=== PATIENT | male | born 1960 | race African-American/Black ===

== ENCOUNTER 2023-05-03 16:13 | Emergency (ER) | payer MEDICAID ==
[~2023-05-03] VITALS: Ht 177.8 cm; Wt 84.3 kg
[2023-05-03] MEDS ORDERED: BRIM5DRO6 EACHEYE ×2 (18:12→18:21)
[2023-05-03] MEDS ORDERED: DORZ1DRO12 EACHEYE ×3 (18:12→18:21)
[2023-05-03 18:45] VITALS: BP 121/75; PULSE 60; RESP 16; TEMP 97.7; O2SAT 100
== END 2023-05-03 18:48 | disposition home or self-care (01) ==
LOC: ER 16:15
DX: H40.9 Unspecified glaucoma (principal); Z76.0 Encounter for issue of repeat prescription; Z79.899 Other long term (current) drug therapy
CPT/HCPCS: 99281

== ENCOUNTER 2023-07-05 16:43 | Emergency (ER) | payer MEDICAID ==
[~2023-07-05] VITALS: Ht 177.8 cm; Wt 96.8 kg
[~2023-07-05 16:43] MED LIST: BRIM5DRO6 EACHEYE; DORZ1DRO12 EACHEYE
[2023-07-05 17:14] VITALS: BP 139/70; PULSE 59; RESP 18; TEMP 98.8; O2SAT 100
== END 2023-07-05 18:40 | disposition home or self-care (01) ==
LOC: ER 16:44
DX: H40.9 Unspecified glaucoma (principal); H26.9 Unspecified cataract
CPT/HCPCS: 99281

== ENCOUNTER 2023-08-04 03:16 | Emergency (ER) | payer MEDICAID ==
[~2023-08-04] VITALS: Ht 180.3 cm; Wt 83.0 kg
[2023-08-04 03:18] VITALS: TEMP 98.1
[2023-08-04] MEDS ORDERED: DORZ10DR10 EACHEYE (07:06)
[2023-08-04 08:11] LABS: BASOPHILS % (AUTO) 0.4 % (0-1); EOSINOPHILS # (AUTO) 0.2 X10'3 (0-0.9); EOSINOPHILS % (AUTO) 2.8 % (0-6); HEMATOCRIT 41.5 % (42.0-52.0); HEMOGLOBIN 13.5 g/dl (14.0-17.9); LYMPHOCYTES # (AUTO) 1.5 X10'3 (1.1-4.8); LYMPHOCYTES % (AUTO) 24.2 % (21-51); MEAN CORPUSCULAR HEMOGLOBIN 26.9 PG (27.0-31.0); MEAN CORPUSCULAR HGB CONC 32.4 g/dL (33.0-36.5); MEAN CORPUSCULAR VOLUME 83.1 FL (78-98); MEAN PLATELET VOLUME 8.7 FL (7.4-10.4); MONOCYTES # (AUTO) 0.6 X10'3 (0-0.9); MONOCYTES % (AUTO) 9.9 % (2-12); NEUTROPHILS # (AUTO) 3.9 X10'3 (1.8-7.7); NEUTROPHILS % (AUTO) 62.7 % (42-75); PLATELET COUNT 151 X10'3 (140-440); RED CELL DISTRIBUTION WIDTH 12.9 % (11.5-14.5); WHITE BLOOD COUNT 6.3 X10'3 (4.5-11.0)
[2023-08-04] MEDS: triamcinolone acetonide 40mg/ml inj IJ ONE (08:18)
[2023-08-04] MEDS: LIDOcaine 1% 30ml preserv. free vial IJ STA (08:18)
[2023-08-04 08:29] LABS: ALBUMIN 3.2 G/DL (3.4-5.0); ANION GAP 8 (8-16); CALCIUM 8.8 MG/DL (8.5-10.1); CHLORIDE 108 MMOL/L (99-107); CREATININE 0.97 MG/DL (0.60-1.10); GLUCOSE 110 MG/DL (70-104); POTASSIUM 3.6 MMOL/L (3.5-5.1); SODIUM 142 MMOL/L (135-145); TOTAL CARBON DIOXIDE 25.6 MMOL/L (24-32); eCRCL 85 ML/MIN; eGFR > 90 ML/MIN
[2023-08-04 08:32] LABS: BLOOD UREA NITROGEN 19 MG/DL (7-18); BUN/CREATININE RATIO 19.6 (10.0-20.0); PRO BRAIN NATRIURETIC PEPTIDE < 30 PG/ML (0-125)
[2023-08-04 09:48] VITALS: BP 124/74; PULSE 66; RESP 17; O2SAT 99
== END 2023-08-04 09:40 | disposition home or self-care (01) ==
LOC: ER 03:16
DX: M75.32 Calcific tendinitis of left shoulder (principal); R07.89 Other chest pain; R06.00 Dyspnea, unspecified; Z79.899 Other long term (current) drug therapy
CPT/HCPCS: 20610; 36415; 71045; 73030; 80048; 83880; 84484; 85025; 93005; 99285; A4565